=== PATIENT | female | born 1950 | race Caucasian/White ===

== ENCOUNTER 2025-06-09 12:35 | Outpatient (CLI) | payer MEDICARE, SELFPAY ==
--- NOTE | 2025-06-09 12:39 | MR_ITS ---
FINAL REPORT TECHNIQUE: Multiplanar and multisequence imaging of the lumbar spine was obtained without contrast. CLINICAL HISTORY: LBP. BILATERAL HIP AND LEG PAIN FINDINGS: There is normal alignment of the lumbar vertebral bodies in the sagittal plane. Vertebral body height is preserved. The spinal cord ends at the level of L1. There is normal signal intensity within the substance of the distal spinal cord. No acute bone marrow edema or pathologic marrow replacement. No acute paraspinal abnormality is identified. L1-2: Right paracentral disc protrusion without canal stenosis or neuroforaminal narrowing. L2-3: No focal disc herniation, central canal stenosis or neuroforaminal narrowing. L3-4: Central disc protrusion superimposed on an annular disc bulge. Mild facet osteoarthropathy and mild left neuroforaminal narrowing. L4-5: An annular disc bulge is present with degenerative endplate changes and facet osteoarthropathy. Mild bilateral neuroforaminal narrowing. L5-S1: An annular disc bulge is present with degenerative endplate changes and facet osteoarthropathy. Moderate right and mild left neuroforaminal narrowing. IMPRESSION: Multilevel degenerative disc disease, most pronounced at L5-S1. Reviewed, Interpreted and Dictated by Imani Elizondo MD Transcribed by Brittany Lester Authenticated and [facility]
== END 2025-06-09 23:59 | disposition home or self-care (01) ==
LOC: RAD 12:36
PROVIDERS: PCP Family Medicine; Visit Provider Physician Assistant
DX: M51.369 Other intervertebral disc degeneration, lumbar region without mention of lumbar back pain or lower extremity pain (principal); M51.379 Other intervertebral disc degeneration, lumbosacral region without mention of lumbar back pain or lower extremity pain
CPT/HCPCS: 72148